=== PATIENT | male | born 1950 | race Caucasian/White ===

== ENCOUNTER 2017-06-26 15:07 | Outpatient (CLI) | payer MEDICARE, BC ==
--- NOTE | 2017-06-26 16:44 | RAD ---
RIGHT WRIST THREE VIEWS 06/26/17 No fracture was seen. While the carpals are not seen optimally, no suspicion of fracture was apparen t. The distal radius and ulna appear intact. The metacarpals seem normal. IMPRESSION: No acute findings. POS: HOME
--- NOTE | 2017-06-26 16:44 | RAD ---
CERVICAL SPINE THREE VIEWS 06/26/17 No prior films were available for comparison. No unequivocal fracture was seen and there is no dislocation. However, the spinous processes of C6 a nd C7 point upwards which is unusual. While I feel the odds that this is anything more than an unusu ally shaped C-spine, given the mechanism of injury, I feel the better part of valor is to do a CT sc an to remove all doubts. Disc space narrowing is present at mainly C4-C5, C5-C6 and C6-C7. Anterior osteophytes are prominent at these levels. The C1 to dens distance is normal and the soft tissues are normal in thickness. IMPRESSION: 1. Diffuse degenerative changes as noted, worse in the lower cervical spine. 2. Somewhat unusual shaped in direction of the spinous processes of at least C6 and C7. While m ore likely just an anomaly, I feel a scan should be done to remove all doubts. POS: HOME
--- NOTE | 2017-06-26 16:45 | RAD ---
RIGHT HAND THREE VIEWS 06/26/17 Some mild degenerative changes are seen in some of the IP joints of the fingers. No acute fracture w as appreciated. All bones appeared intact. IMPRESSION: No acute finding. POS: HOME
--- NOTE | 2017-06-26 17:07 | CT ---
CT OF THE CERVICAL SPINE 06/26/[address] of the cervical spine was obtained following a questionably abnormal plain film. Axial sli salvador were acquired, then coronal and sagittal reconstructions were done. No definite fracture was seen in this patient. The spinous processes of C6 and C7 are angulated a li ttle differently than many, but no fracture was seen here. There is a slight downsloping of the supe rior end plate of T1, however, individual slices through this vertebra revealed no sign of acute fra cture. This might be old. The C1 to dens distance is normal and the soft tissues are normal in thick ness. Findings by level follow: C1-C2: No acute findings. C2-C3: No acute findings. C3-C4: Mild left foraminal narrowing. C4-C5: No acute findings. C5-C6: Large anterior osteophytes but no acute findings. C6-C7: No acute findings. C7-T1: No acute findings. T1-T2: No acute findings. IMPRESSION: No acute bony findings. Specifically, no evidence for fracture. POS: HOME
== END 2017-06-26 15:08 | disposition home or self-care (01) ==
LOC: BURRAD 15:07
PROVIDERS: ATTEND Family Medicine
DX: R93.7 Abnormal findings on diagnostic imaging of other parts of musculoskeletal system (principal); M25.531 Pain in right wrist; M47.812 Spondylosis without myelopathy or radiculopathy, cervical region; W19.XXXA Unspecified fall, initial encounter
CPT/HCPCS: 72040; 72125